=== PATIENT | female | born 1980 | race Caucasian/White ===

== ENCOUNTER 2019-04-04 20:53 | Emergency (ER) | payer OTHER ==
[2019-04-04] MEDS ORDERED: ONDANSETRON 4 MG/2 ML VIAL IVP STA (21:15)
[2019-04-04] MEDS ORDERED: HYDROmorphone 1 MG/ML CARPUJECT IVP STA (21:15)
--- NOTE | 2019-04-04 21:17 | ED Physician Documentation ---
PD HPI LOWER EXT INJURY - Stated complaint Stated Complaint: RT ANKLE INJ - Chief complaint Chief Complaint: Trauma Ext - History obtained from History obtained from: Patient - History of Present Illness PD HPI LOW EXT INJURY LOCATION: Right, Ankle Type of injury: Other (Slipped off of a railroad tie while gardening) Where injury occurred: Home Timing - onset: How many minutes ago (45) Timing - duration: Minutes (45) Timing - details: Abrupt onset Improved by: Nothing Associated symptoms: Other (Deformity). No: Discolored Similar symptoms before: Has not had sx before Recently seen: Not recently seen - Additional information Additional information: Is a 38-year-old woman who was gardening out in her garden 45 minutes ago she wa s on a railroad tie that was very slippery and she slipped off injuring the right ankle. It is deformed and she cannot bear weight on it. She denies any other injury. She did not hit her head or pass out. She has no allergies. Review of Systems Unable to obtain: Other (Acute pain) Musculoskeletal: reports: Extremity pain, Joint pain Neurologic: denies: Numbness PD PAST MEDICAL HISTORY - Present Medications Home Medications: Ambulatory Orders Medication Instructions Recorded Confirmed Hydrocodone/Acetaminophen 1 - 2 each PO Q6H PRN #14 tablet 04/04/19 [Hydrocodon-Acetaminophen 5-325] - Allergies Allergies/Adverse Reactions: Allergies Allergy/AdvReac Type Severity Reaction Status Date / Time No Known Drug Allergies Allergy Verified 04/04/19 21:11 PD ED PE NORMAL - Vitals Vital signs reviewed: Yes - General General: Alert and oriented X 3, Well developed/nourished, Other (In acute pain) PD ED PE EXPANDED - Extremities Extremities: Right ankle (Obvious deformity at the ankle. She has a 2+ dorsalis pedis pulse she is able to wiggle her toes and sensation is intact to light touch.) Results - Vitals Vitals: Vital Signs - 24 hr 04/04/19 04/04/19 04/04/19 21:08 21:11 22:27 Temperature 36.7 C Heart Rate 104 H 114 H 93 Respiratory 15 15 16 Rate Blood Pressure 126/89 H 126/89 H 141/99 H O2 Saturation 99 99 100 04/04/19 22:40 Temperature Heart Rate 85 Respiratory 20 Rate Blood Pressure 109/77 O2 Saturation 100 Oxygen O2 Source Room air - Labs Labs: Laboratory Tests 04/04/19 04/04/19 21:40 21:40 WBC 6.8 RBC 4.47 Hgb 13.8 Hct 42.3 MCV 94.6 MCH 30.9 MCHC 32.6 RDW 13.1 Plt Count 250 MPV 9.6 Neut # (Auto) 4.3 Lymph # (Auto) 1.9 [place] # (Auto) 0.5 Eos # (Auto) 0.1 Baso # (Auto) 0.0 Absolute Nucleated RBC 0.00 Nucleated RBC % 0.0 Sodium 143 Potassium 3.8 Chloride 106 Carbon Dioxide 23 Anion Gap 14.0 H BUN 5 L Creatinine 0.6 Estimated GFR (MDRD) 111 Glucose 92 Calcium 9.5 - Rads (name of study) r ankle Radiology: EMP read contemporaneously (displaced bimalleolar fracture) Procedures - Reduction Body part reduced: Right, Ankle Fracture or dislocation: Fracture dislocation Anesthesia: Conscious sedation Reduction aftercare: NV intact, Xray confirms reduction, Alignment improved, Splint applied, Crutches, Patient tolerated well - Procedural sedation Sedation prep: Informed consent, Last meal (10am), AHA 1 - healthy, IV O2 monitor, ET CO2 monitor, RT present Sedation medications: propofol (80 mg) Patient status during sedation: Drowsy, Vitals remained stable, Maintained airway, Recovered uneventfully Sedation recovery: Recovered uneventfully Time in sedation (Minutes): 8 PD MEDICAL DECISION MAKING - ED course Complexity details: reviewed results, re-evaluated patient, d/w patient ED course: Patient has a bimalleolar displaced fracture of the right ankle. She is neurova scularly intact. I discussed case with Dr. Ludwig, orthopedist content engineer. He requested that I reduce the fracture, splint it and have her follow-up with the clinic next week for scheduling of surgery. Reduction was adequate and the patient tolerated this well. Discharge instructions were discussed with her including signs and symptoms of compartment syndrome. All questions were answered. She will be provided a prescription for hydrocodone to use as needed for pain and a note for work. Departure - Departure Disposition: 01 Home, Self Care Clinical Impression: Fracture, bimalleolar, closed Qualifiers: Encounter type: initial encounter Laterality: right Qualified Code(s): S82.841A - Displaced bimalleolar fracture of right lower leg, initial encounter for closed fracture Condition: Good Instructions: ED Fx Ankle General, ED Splint Care Plaster Follow-Up: Salvador Ludwig MD [Provider Admit Priv/Credential] - Prescriptions: Hydrocodone/Acetaminophen [Hydrocodon-Acetaminophen 5-325] 1 - 2 each PO Q6H PRN #14 tablet PRN Reason: pain Comments: Continue to keep the leg elevated. May apply ice but do not get the splint wet. Watch for signs of compartment syndrome and return immediately if you develop increasing pain in your toes particularly if associated with numbness and decreased capillary refill. May take ibuprofen [id number]. Take ibuprofen if needed for pain but do not operate machinery or take additional Tylenol with that. Contact Dr. Ludwig's office on Saturday for a follow-up appointment to schedule for surgical repair. Forms: Activity restrictions
[2019-04-04 21:46] LABS: BASOPHILS % (AUTO) 0.4 %; EOSINOPHILS # (AUTO) 0.1 10^3/uL (0.0-0.7); EOSINOPHILS % (AUTO) 1.5 %; HGB - HEMOGLOBIN 13.8 g/dL (12.0-16.0); LYMPHOCYTES # (AUTO) 1.9 10^3/uL (1.5-3.5); LYMPHOCYTES % (AUTO) 27.9 %; MEAN CORPUSCULAR HEMOGLOBIN 30.9 pg (27.0-31.0); MEAN CORPUSCULAR HGB CONC 32.6 g/dL (32.0-36.0); MEAN CORPUSCULAR VOLUME 94.6 fL (81.0-99.0); MEAN PLATELET VOLUME 9.6 fL (7.9-10.8); MONOCYTES # (AUTO) 0.5 10^3/uL (0.0-1.0); MONOCYTES % (AUTO) 7.4 %; NEUTROPHILS # (AUTO) 4.3 10^3/uL (1.5-6.6); NEUTROPHILS % (AUTO) 62.7 %; PLT - PLATELET COUNT 250 10^3/uL (130-450); RED BLOOD COUNT 4.47 10^6/uL (4.20-5.40); RED CELL DISTRIBUTION WIDTH 13.1 % (12.0-15.0); WHITE BLOOD COUNT 6.8 x10^3/uL (4.8-10.8)
--- NOTE | 2019-04-04 21:46 | XRAY Report ---
Reason: ankle pain and deformity Procedure Date: 04/04/2019 Accession Number: [id number] / [id number] Procedure: XR - Ankle 3 View RT CPT Code: FULL RESULT: EXAM: RIGHT ANKLE RADIOGRAPHY EXAM DATE: 04/04/2019 09:38 PM. CLINICAL HISTORY: Ankle pain and deformity. COMPARISON: None. TECHNIQUE: 3 views. FINDINGS: Bones: There is fracture through the distal fibula at the level of the syndesmosis. There are fractures through the medial and posterior malleoli. Joints: There is dorsal lateral subluxation to the tibiotalar joint. Soft Tissues: No unexpected soft tissue findings. IMPRESSION: Hernandes B fracture dislocation. RADIA
[2019-04-04 21:54] LABS: CALCIUM 9.5 mg/dL (8.5-10.3); CREATININE 0.6 mg/dL (0.4-1.0)
[2019-04-04] MEDS ORDERED: SODIUM CHLORIDE 0.9% 1,000 ML IV ONE (22:06)
[2019-04-04] MEDS ORDERED: PROPOFOL 200 MG/20 ML VIAL IVP STA (22:06)
[2019-04-04] MEDS ORDERED: KETOROLAC 30 MG/ML VIAL IVP STA (22:40)
--- NOTE | 2019-04-04 23:15 | XRAY Report ---
Reason: post-reduction Procedure Date: 04/04/2019 Accession Number: [id number] / [id number] Procedure: XR - Ankle 2 View RT CPT Code: FULL RESULT: EXAM: RIGHT ANKLE RADIOGRAPHY EXAM DATE: 04/04/2019 10:58 PM. CLINICAL HISTORY: Post-reduction. COMPARISON: ANKLE 3 VIEW RT 04/04/2019 9:19 PM. TECHNIQUE: 2 views. FINDINGS: Bones: Mild residual post reduction displacement of medial and lateral malleolus fracture fragments. Joints: Improved tibiotalar joint alignment with slight residual posterior talar subluxation and widening of the ankle joint anteriorly. Soft Tissues: Circumferential periarticular soft tissue swelling. IMPRESSION: 1. Improved lateral and medial malleolus fracture fragment alignment with mild residual displacement. 2. Mild residual posterior talus subluxation and widening of the ankle joint anteriorly. RADIA
[2019-04-04] MEDS ORDERED: HYDROcod/ACET 5/325 Prepack 4 PO STA (23:22)
[2019-04-04 23:29] VITALS: BP 107/81
== END 2019-04-04 23:35 | disposition home or self-care (01) ==
LOC: ED 20:53
DX: S82.841A Displaced bimalleolar fracture of right lower leg, initial encounter for closed fracture (principal); X50.1XXA Overexertion from prolonged static or awkward postures, initial encounter; Y93.H2 Activity, gardening and landscaping; Y92.007 Garden or yard of unspecified non-institutional (private) residence as the place of occurrence of the external cause
CPT/HCPCS: 27810; 36415; 73600; 73610; 80048; 85025; 94770; 96361; 96374; 96375; 99283; J1170

== ENCOUNTER 2019-04-07 11:43 | Outpatient (CLI) | payer OTHER ==
[2019-04-07 12:21] LABS: BASOPHILS % (AUTO) 0.4 %; EOSINOPHILS # (AUTO) 0.1 10^3/uL (0.0-0.7); EOSINOPHILS % (AUTO) 1.1 %; HGB - HEMOGLOBIN 13.7 g/dL (12.0-16.0); LYMPHOCYTES # (AUTO) 1.1 10^3/uL (1.5-3.5); LYMPHOCYTES % (AUTO) 14.4 %; MEAN CORPUSCULAR HEMOGLOBIN 31.1 pg (27.0-31.0); MEAN CORPUSCULAR HGB CONC 32.9 g/dL (32.0-36.0); MEAN CORPUSCULAR VOLUME 94.5 fL (81.0-99.0); MEAN PLATELET VOLUME 10.1 fL (7.9-10.8); MONOCYTES # (AUTO) 0.5 10^3/uL (0.0-1.0); MONOCYTES % (AUTO) 6.8 %; NEUTROPHILS # (AUTO) 6.1 10^3/uL (1.5-6.6); PLT - PLATELET COUNT 215 10^3/uL (130-450); WHITE BLOOD COUNT 7.9 x10^3/uL (4.8-10.8)
[2019-04-07 12:41] LABS: CALCIUM 9.5 mg/dL (8.5-10.3); CREATININE 0.6 mg/dL (0.4-1.0)
== END 2019-04-07 11:44 | disposition home or self-care (01) ==
LOC: LAB 11:43
PROVIDERS: ATTEND Orthopaedic Surgery Sports Medicine
DX: S82.851D Displaced trimalleolar fracture of right lower leg, subsequent encounter for closed fracture with routine healing (principal); R94.31 Abnormal electrocardiogram [ECG] [EKG]
CPT/HCPCS: 36415; 80048; 85025; 93005

== ENCOUNTER 2019-04-08 07:51 | Day surgery (SDC) | payer OTHER ==
[2019-04-08] MEDS ORDERED: CEFAZOLIN SODIUM IN 0.9 % NACL 2 GM/100 ML BAG IV ONE ×2 (08:04→10:25)
[2019-04-08] MEDS ORDERED: LACTATED RINGERS 1,000 ML IV ONE ×2 (08:14→12:54)
[2019-04-08 08:29] LABS: HCG UR QUAL NEGATIVE
--- NOTE | 2019-04-08 08:57 | ANESTHESIA ---
Pre-Anesthesia VS, & Labs - Diagnosis right trimaleolar ankle fracture - Procedure orif of right ankle Vital Signs: Temp Pulse Resp BP Pulse Ox 36.4 C L 94 16 125/58 L 95 04/08/19 08:15 04/08/19 08:15 04/08/19 08:15 04/08/19 08:15 04/08/19 08:15 Height 5 ft 3 in Weight (kg) 64 kg Body Mass Index 24.7 - NPO >8 hours - Is Patient ?: No Home Medications and Allergies Home Medications: Ambulatory Orders Ibuprofen [Motrin] 600 mg PO Q6H PRN 04/07/19 Ibuprofen [Motrin] 600 mg PO Q6H PRN 04/07/19 Allergies/Adverse Reactions: Allergies Allergy/AdvReac Type Severity Reaction Status Date / Time dairy AdvReac Cramps Uncoded 04/07/19 11:53 Anes History & Medical History - Anesthetic History Anesthesia Complications: reports: No previous complications Family history of Anesthesia Complications: Denies Family history of Malignant Hyperthermia: Denies - Medical History Cardiovascular: reports: None Pulmonary: reports: None Gastrointestinal: reports: None Urinary: reports: None Endocrine/Autoimmune: reports: None Skin: reports: None - Surgical History Gynecologic: section Exam General: Alert, Oriented x3, Cooperative, No acute distress Dental: Dentures full Upper, Other (cap) Mouth Openin Fingerbreadth Neck Mobility: Normal Mallampati classification: I Thyromental Distance: greater than 6 cm Respiratory: Lungs clear, Normal breath sounds, No respiratory distress, No accessory muscle use Cardiovascular: Regular rate, Normal S1, Normal S2, No murmurs Plan Anesthesia Type: General Consent for Procedure(s) Verified and Reviewed: Yes Code Status: Attempt Resuscitation ASA classification: 1-Healthy patient Is this case an emergency?: No
[2019-04-08] MEDS ORDERED: BUPIVACAINE 0.25%-EPI 1:200000 PF 30 ML VIAL ONE (09:19)
[2019-04-08] MEDS ORDERED: ACETAMINOPHEN 1,000 MG/100 ML 100 ML IV ONE ×2 (10:20→10:25)
[2019-04-08] MEDS ORDERED: BUPIVACAINE 0.25%-EPI 1:200000 PF 30 ML VIAL SUBQ ONE ×2 (10:20)
[2019-04-08] MEDS ORDERED: LIDOCAINE-MPF 2% 5 ML VIAL IM ONE (10:25)
[2019-04-08] MEDS ORDERED: GLYCOPYRROLATE 1 MG/5 ML VIAL IVP ONE (10:25)
[2019-04-08] MEDS ORDERED: PROPOFOL 200 MG/20 ML VIAL IVP ONE (10:25)
[2019-04-08] MEDS ORDERED: ROCURONIUM 50 MG/5 ML VIAL IVP ONE (10:25)
[2019-04-08] MEDS ORDERED: NEOSTIGMINE 1 MG/1 ML 10 ML MDV IVP ONE (10:25)
[2019-04-08] MEDS ORDERED: ONDANSETRON 4 MG/2 ML VIAL IVP ONE (10:25)
[2019-04-08] MEDS ORDERED: DEXAMETHASONE 4 MG/ML VIAL IVP ONE (10:25)
[2019-04-08] MEDS ORDERED: MORPHINE 10 MG/ML VIAL IVP ONE (10:25)
[2019-04-08] MEDS: fentaNYL 100 MCG/2 ML VIAL ONE ×2 (12:05→12:14)
[2019-04-08] MEDS: HYDROmorphone 1 MG/ML CARPUJECT ONE ×2 (12:08→12:15)
--- NOTE | 2019-04-08 12:13 | IMMEDIATE POSTOPERATIVE NOTE ---
Immediate Postoperative Note - Procedure Note Procedure Date: 04/08/19 Pre-Op Diagnosis: right trimaleolar ankle fracture subluxation Procedure: right ankle orif med/lat maleoli, splint treatment posterior maleolus Post-Op Diagnosis: same Primary Surgeon: Burak seaman Supervisor Litharge: RENARD Anesthesia Type: General ET tube, Local Findings: as above Complications: No complications Estimated Blood Loss (in cc): 10 Plan of Care: pt tolerated procedure well. instrument and sponge counts correct. pt transferred to in stable condition. std post-op orif ankle protocol
[2019-04-08] MEDS ORDERED: HYDROcod/ACETAM 5/325 MG TABLET PO PRN (12:14)
[2019-04-08] MEDS ORDERED: ONDANSETRON 4 MG/2 ML VIAL IVP PRN (12:14)
[2019-04-08] MEDS ORDERED: oxyCODONE 5 MG TABLET PO PRN (12:14)
[2019-04-08] MEDS ORDERED: HYDROmorphone 0.5 MG/0.5 ML SYRINGE ONE ×2 (12:37→12:53)
[2019-04-08] MEDS ORDERED: oxyCODONE 5 MG TABLET ONE (13:26)
[2019-04-08 14:24] VITALS: BP 106/77
--- NOTE | 2019-04-08 15:44 | OPERATIVE REPORT ---
DATE OF SERVICE: 04/08/2019 Physician: Evan Jimenez MD SURGEON: Evan Jimenez MD CONSTRUCTION OR LEAK GANG LABORER: None. ANESTHESIOLOGIST: Bruce Olson MD; as well as Lucia Lee CRNA. ANESTHESIA TYPE: General endotracheal, as well as 30 mL of 0.25% Marcaine with epinephrine local. ESTIMATED BLOOD LOSS: 10 mL FLUIDS: Please see anesthesia report. TOURNIQUET TIME: 98 minutes at 250 mmHg. PREOPERATIVE ANTIBIOTICS: 2 grams weight-based IV Ancef. PREOPERATIVE DIAGNOSIS: Right ankle trimalleolar fracture subluxation. POSTOPERATIVE DIAGNOSIS: Right ankle trimalleolar fracture subluxation. PROCEDURE 1. Right ankle open reduction and internal fixation of lateral malleolus. 2. Right ankle open reduction and internal fixation of medial malleolus. 3. Splint treatment for right ankle posterior malleolus fracture. HISTORY OF PRESENT ILLNESS AND INDICATIONS: Patient is a 38-year-old female who sustained a fracture subluxation, right ankle, a number of days ago. She is indicated for operative treatment for this unstable fracture pattern. Please see clinic report for further details of risks, benefits, alternatives discussion. This is reviewed with the patient and again highlighted in the preoperative care unit. Her questions are answered. She verbalizes understanding of the above. Risks, benefits and alternatives, potential short and long-term problems with and without surgery. She verbalizes her wish to proceed with operative treatment. Informed consent is given. DESCRIPTION OF PROCEDURE: On 04/08/2019, patient is identified in the preoperative care unit. She identifies her right ankle. This is signed. Examined and noted to have skin intact with no blisters. She is given preoperative weight-based IV antibiotics. She is brought to the operating room, given general anesthesia, placed comfortably in a safe position on the operating table with head, neck and extremities in safe positions. Patient's right lower extremity has a well-padded tourniquet placed high on the right thigh, taking care to avoid encompassing genitalia. Patient's right lower extremity has the splint removed, and then the right foot and ankle all the way up to the thigh are pre-scrubbed with Hibiclens solution, then alcohol, and then prepped with ChloraPrep solution, and draped sterilely. At this point, surgical pause identifies right ankle as the operative site. At this point, Esmarch bandage is used to exsanguinate the limb. Tourniquet is inflated. At this point, an incision is made in the posterior aspect of the lateral malleolus through skin, spreading dissection carried out to the periosteum, which is noted to be somewhat violated. It is elevated proximal and distal to the fracture site. It is noted to be somewhat comminuted, particularly anteriorly with 1 very small fragment and the numerous other slightly larger fragments, though the great majority of this is an oblique posterior superior to anterior inferior oriented fracture. The fracture is cleared of hematoma and periosteum, and then reduction maneuver, as well as lion jaw reduction clamps used to reduce the lateral malleolus to a near anatomic position. Subsequently, 2 anterior to posterior lag screws are placed using interfragmentary compression technique. This holds the fracture well and care is made sure to avoid over penetration of the second cortex. At this point, a neutralization plate is placed posterolaterally with unicortical distal cancellous screws and bicortical proximal screws. This is flush on the bone and well contoured. Appropriate screw lengths are selected. At this point, the fluoroscopic image confirms acceptable fracture position laterally and much improved position medially. At this point, this area is copiously irrigated and kept moist with a Ray-Og, and attention is directed towards the medial malleolus, where an incision is made. Spreading dissection is carried out. Care is taken to avoid injury to adjacent neurovascular structures, not only medially, but also previously during the lateral dissection. At this point, the periosteum is identified in the fracture site, which is removed. Hematoma is removed from the fracture site. The area is copiously irrigated. Minimal debris is removed from the observed area of the joint and then a ggtky-rq-fvqzk reduction clamp is used to help reduce the medial malleolus to a near anatomic position. There is minimal comminution noted posteriorly. This is held in place and then the distal soft tissues are incised minimally, such that two 2.5 drills could be placed from distal to proximal. These are confirmed to be in acceptable position fluoroscopically and under direct visualization, and then they are replaced by 40 length, partially threaded cancellous screws for compression fixation of the medial malleolus. These are tightened appropriately. The reduction is noted to be near-anatomic under direct visualization, at which point a Cotton test is noted to be negative, and then both medial and lateral incisions are copiously irrigated. Medial incision is closed using 0 Vicryl, 2-0 Vicryl, interrupted nylon. Lateral incision has periosteum closed over the distal aspect of the plate and screws, and then again repeat copious irrigation is performed, and the skin is closed in a layered fashion with 0 Vicryl, 2-0 Vicryl, interrupted nylon suture for skin. Skin is washed and dried. Local anesthetic is infused medially and laterally. Xeroform dressing is applied. Dry sterile dressing applied. Patient is placed in a saddle well-padded splint. Patient tolerated the procedure well. Instrument and sponge counts are correct. Patient is transferred to the recovery room in stable condition. She will follow standard postoperative right ankle open reduction and internal fixation protocol with splint fixation of the posterior malleolus. Of note, the splint keeps the foot in neutral, which is noted to maintain the posterior malleolus in a nearly anatomically reduced position on the lateral view x-ray. Please see fluoroscopic images on PACS. Patient will be nonweightbearing. She will ice and elevate at rest. She will be encouraged to move her toes. She is given perioperative analgesic medications, perioperative antibiotic medication prescription is given for 24 hours. She will use aspirin 325 mg once daily for 1 month. She will follow up in 10-14 days for a postop visit, though sooner should problems, questions or worsening condition should arise. Postoperative instructions reviewed preoperatively, as well as provided in written form postoperatively. TD: 04/08/2019 14:35 BAHMAN
--- NOTE | 2019-04-09 09:53 | XRAY Report ---
Reason: ORIF RIGHT ANKLE Procedure Date: 04/08/2019 Accession Number: [id number] / [id number] Procedure: FL - OR C-Arm Procedure CPT Code: FULL RESULT: EXAM: FLUOROSCOPIC GUIDANCE EXAM DATE: 04/08/2019 11:30 AM. CLINICAL HISTORY: ORIF right ankle. COMPARISON: OR C-ARM PROCEDURE 04/08/2019 10:53 AM ANKLE 3 VIEW RT 04/08/2019 10:53 AM. FINDINGS: 4 fluoroscopic intraoperative save screen images demonstrate repair of a medial malleolus and distal fibular fracture. Medial malleolus is secured by 2 partially threaded cannulated screws and repair of the distal fibula is performed by lateral plate and screw construct with 2 additional interfragmentary screws. IMPRESSION: Fluoroscopic guidance provided for ORIF of the right ankle. Total fluoroscopy time: 0.4 minutes. Number of images: 4. RADIA
--- NOTE | 2019-04-09 09:53 | XRAY Report ---
Reason: ORIF Right Ankle Procedure Date: 04/08/2019 Accession Number: [id number] / [id number] Procedure: XR - Ankle 3 View RT CPT Code: FULL RESULT: EXAM: FLUOROSCOPIC GUIDANCE EXAM DATE: 04/08/2019 11:30 AM. CLINICAL HISTORY: ORIF right ankle. COMPARISON: OR C-ARM PROCEDURE 04/08/2019 10:53 AM ANKLE 3 VIEW RT 04/08/2019 10:53 AM. FINDINGS: 4 fluoroscopic intraoperative save screen images demonstrate repair of a medial malleolus and distal fibular fracture. Medial malleolus is secured by 2 partially threaded cannulated screws and repair of the distal fibula is performed by lateral plate and screw construct with 2 additional interfragmentary screws. IMPRESSION: Fluoroscopic guidance provided for ORIF of the right ankle. Total fluoroscopy time: 0.4 minutes. Number of images: 4. MARYANNE
== END 2019-04-08 07:52 | disposition home or self-care (01) ==
LOC: SDS 07:51
PROVIDERS: ATTEND Orthopaedic Surgery Sports Medicine
PROC: 0QSG04Z Reposition Right Tibia with Internal Fixation Device, Open Approach (ICD-10-PCS; 2019-04-08)
PROC: 0QSG0ZZ Reposition Right Tibia, Open Approach (ICD-10-PCS; 2019-04-08)
PROC: 0QSJ04Z Reposition Right Fibula with Internal Fixation Device, Open Approach (ICD-10-PCS; principal; 2019-04-08 09:15)
DX: S82.851A Displaced trimalleolar fracture of right lower leg, initial encounter for closed fracture (principal); F17.210 Nicotine dependence, cigarettes, uncomplicated
CPT/HCPCS: 27822; 73610; 81025; A9270; C1713; J0131; J0690; J1170; J7120

== ENCOUNTER 2022-04-14 11:20 | Outpatient (CLI) | payer BC | END 2022-04-14 11:21 | disposition critical access hospital (66) | LOC: EMS 11:20 | DX: R55 Syncope and collapse (principal); R42 Dizziness and giddiness; R11.0 Nausea | CPT/HCPCS: A0425; A0427 ==

== ENCOUNTER 2022-04-14 11:37 | Emergency (ER) | payer BC, OTHER ==
[2022-04-14] MEDS ORDERED: SODIUM CHLORIDE 0.9% 1,000 ML IV STA (11:50)
--- NOTE | 2022-04-14 11:51 | ED Physician Documentation ---
PD HPI NVD - Stated complaint Stated Complaint: DIZZY/SHAKY - Chief complaint Chief Complaint: Neuro - History obtained from History obtained from: Patient, EMS - History of Present Illness Timing - onset: How many hours ago (1), Today Timing - duration: Minutes Timing - details: Abrupt onset (The patient states she felt mild general malaise the last 1 or 2 days. She had felt okay awakening this morning and going to the store. At the store, she abruptly felt nauseous, lightheaded and about to faint. No vertigo. This lasted several minutes and bystanders called EMS.), Still present Associated symptoms: No: Fever (felt chills and shaking with the symptoms onset.), Abdominal pain Contributing factors: Alcohol use (not recent (has few drinks every few days).). No: Sick contact, Bad food, Travel Improved by: Laying still (sitting with head down felt some better.) Worsened by: No: Moving, Position Similar symptoms before: Has not had sx before Recently seen: Not recently seen Review of Systems Constitutional: reports: Chills, Fatigue (past 2 days). denies: Fever Nose: denies: Rhinorrhea / runny nose, Congestion Throat: denies: Sore throat Cardiac: denies: Chest pain / pressure, Palpitations, Calf pain Respiratory: denies: Cough GI: reports: Nausea. denies: Abdominal Pain, Vomiting, Diarrhea, Bloody / black stool : denies: Dysuria Neurologic: denies: Altered mental status, Headache PD PAST MEDICAL HISTORY - Past Medical History Cardiovascular: None Respiratory: None Endocrine/Autoimmune: None GI: None - Present Medications Home Medications: Ambulatory Orders Medication Instructions Recorded Confirmed No Known Home Medications 04/14/22 04/14/22 - Allergies Allergies/Adverse Reactions: Allergies Allergy/AdvReac Type Severity Reaction Status Date / Time dairy AdvReac Cramps Uncoded 04/07/19 11:53 - Living Situation Living Situation: reports: With spouse/s.o. Living Arrangement: reports: At home - Social History Does the pt smoke?: Yes Does the pt drink ETOH?: Yes ETOH Use: Beer (occasional) Does the pt have substance abuse?: No PD ED PE NORMAL - Vitals Vital signs reviewed: Yes - General General: Alert and oriented X 3, No acute distress, Well developed/nourished - HEENT HEENT: Moist mucous membranes - Neck Neck: Supple, no meningeal sign, No adenopathy - Cardiac Cardiac: RRR, No murmur - Respiratory Respiratory: Clear bilaterally - Abdomen Abdomen: Soft, Non tender, Non distended - Back Back: No CVA TTP - Derm Derm: Normal color, Warm and dry - Neuro Neuro: Alert and oriented X 3, No motor deficit, Normal speech Eye Opening: Spontaneous Motor: Obeys Commands Verbal: Oriented GCS Score: 15 - Psych Psych: Normal mood Results - Vitals Vitals: Vital Signs - 24 hr 04/14/22 11:42 Temperature 36.8 C Heart Rate 88 Respiratory 17 Rate Blood Pressure 137/88 H O2 Saturation 100 Oxygen O2 Source Room air - EKG (time done) 12:02 Rate: Rate (enter#) (73) Rhythm: NSR [place]iken: Normal Intervals: Normal NH QRS: Normal Ischemia: Normal ST segments. No: ST elevation c/w ischemia, ST depression Compare to prior EKG: Old EKG unavailable - Labs Labs: Laboratory Tests 04/14/22 04/14/22 04/14/22 11:55 11:55 11:55 WBC 6.0 RBC 4.36 Hgb 13.6 Hct 40.9 MCV 93.8 MCH 31.2 H MCHC 33.3 RDW 12.9 Plt Count 249 MPV 10.0 Neut # (Auto) 4.6 Lymph # (Auto) 0.8 L [place] # (Auto) 0.6 Eos # (Auto) 0.0 Baso # (Auto) 0.0 Absolute Nucleated RBC 0.00 Nucleated RBC % 0.0 Sodium 139 Potassium 4.1 Chloride 105 Carbon Dioxide 26 Anion Gap 8.0 BUN 9 Creatinine 0.6 Estimated GFR (MDRD) 109 Glucose 118 H Calcium 9.1 Total Bilirubin 0.6 AST 21 ALT 13 Alkaline Phosphatase 30 L Troponin I High Sens 4.0 Total Protein 7.1 Albumin 4.3 Globulin 2.8 Albumin/Globulin Ratio 1.5 Lipase 47 - Rads (name of study) chest xray Radiology: Prelim report reviewed (no acute process), See rad report PD MEDICAL DECISION MAKING - ED course Complexity details: re-evaluated patient (still feeling okay. Feels comfortable going home. ), considered differential (The patient's heart rhythm as well as other vital signs remained normal here in the ER. Basic blood tests and troponin are normal. She is without any further symptoms upon arrival in the ER and throughout the stay. We did do a viral nasal PCR test with consideration of a early viral syndrome. ), d/w patient Departure - Departure Disposition: 01 Home, Self Care Clinical Impression: Near syncope Condition: Stable Record reviewed to determine appropriate education?: Yes Instructions: ED Near Syncope Unkn Comments: It is unclear the cause of your symptoms. Here in the ER, you do have blood pressure, heart rate, oxygenation as well as a normal EKG and chest x-ray. Your blood tests did not show any anemia, electrolyte disorder, blood sugar abnormality or signs of heart attack. We did do a viral nose swab test that should result later or tomorrow. Consideration could be an early viral illness versus other fluctuations in blood pressure temporarily etc. At this point there is no significant cause noted and your symptoms are better so it does seem safe for you to go home. Return to the ER if recurrent episodes. Otherwise good hydration and rest somewhat today.
[2022-04-14 12:02] LABS: BASOPHILS % (AUTO) 0.7 %; EOSINOPHILS % (AUTO) 0.3 %; HCT - HEMATOCRIT 40.9 % (37.0-47.0); HGB - HEMOGLOBIN 13.6 g/dL (12.0-16.0); LYMPHOCYTES # (AUTO) 0.8 10^3/uL (1.5-3.5); LYMPHOCYTES % (AUTO) 12.9 %; MEAN CORPUSCULAR HEMOGLOBIN 31.2 pg (27.0-31.0); MEAN CORPUSCULAR HGB CONC 33.3 g/dL (32.0-36.0); MEAN CORPUSCULAR VOLUME 93.8 fL (81.0-99.0); MONOCYTES # (AUTO) 0.6 10^3/uL (0.0-1.0); MONOCYTES % (AUTO) 9.4 %; NEUTROPHILS # (AUTO) 4.6 10^3/uL (1.5-6.6); NEUTROPHILS % (AUTO) 76.5 %; PLT - PLATELET COUNT 249 10^3/uL (130-450); RED BLOOD COUNT 4.36 10^6/uL (4.20-5.40); RED CELL DISTRIBUTION WIDTH 12.9 % (12.0-15.0)
--- NOTE | 2022-04-14 12:24 | XRAY Report ---
PROCEDURE: Chest 1 View X-Ray INDICATIONS: chest tightness COMMENTS: CENTRAL CHEST PRESSURE. SX STARTED TODAY. PRIORS: NONE TECHNIQUE: One view of the chest was acquired. COMPARISON: None FINDINGS: Surgical changes and devices: None. Lungs and pleura: No pleural effusions or pneumothorax. Lungs are clear. Mediastinum: Mediastinal contours appear normal. Heart size is normal. Bones and chest wall: No suspicious bony lesions. Overlying soft tissues appear unremarkable. IMPRESSION: No acute cardiopulmonary abnormality. Reviewed by: Norris Thrasher on 04/14/2022 12:22 PM PDT Approved by: Norris Thrasher on 04/14/2022 12:22 PM PDT Station ID: [id number]
[2022-04-14 12:28] LABS: ALBUMIN 4.3 g/dL (3.2-5.5); ALBUMIN/GLOBULIN RATIO 1.5 (1.0-2.2); BILIRUBIN,TOTAL 0.6 mg/dL (0.2-1.0); CALCIUM 9.1 mg/dL (8.5-10.3); CREATININE 0.6 mg/dL (0.4-1.0); POTASSIUM 4.1 mmol/L (3.5-5.0); TOTAL PROTEIN 7.1 g/dL (6.7-8.2)
[2022-04-14 13:30] VITALS: BP 119/84
[2022-04-14 14:14] LABS: INFLUENZA A- RESP PCR PANEL NOT DETECTED; INFLUENZA B - RESP PCR PANEL NOT DETECTED; RSV- RESP PCR PANEL NOT DETECTED; SARS-CoV-2 -RESP PCR PANEL NOT DETECTED
== END 2022-04-14 13:29 | disposition home or self-care (01) ==
LOC: EDUNIT# → ED 11:37
DX: R55 Syncope and collapse (principal); Z20.822 Contact with and (suspected) exposure to COVID-19
CPT/HCPCS: 36415; 80053; 83690; 84484; 85025; 87637; 93005; 99284